=== PATIENT | female | born 1975 | race African-American/Black ===

== ENCOUNTER 2021-04-13 20:28 | Emergency (ER) | payer OTHER, SELFPAY ==
--- NOTE | ~2021-04-13 | XR_ITS ---
EXAMINATION: XR thoracic spine 2V DATE: 04/14/2021 00:08 INDICATION: Posterior left thoracic spine pain. TECHNIQUE: One AP, lateral and lateral swimmer's views of the thoracic spine were obtained. COMPARISON: None. FINDINGS: Alignment is normal. Vertebral body heights are normal. Mild disc height loss at a few levels in the mid and lower thoracic spine. Visualized lungs are clear. No pulmonary edema, pleural effusion or pne umothorax. Cardiomediastinal silhouette is normal. IMPRESSION: 1. Mild thoracic spondylosis. Reviewed, dictated and finalized at location A.
[2021-04-13 20:31] VITALS: BP 131/72; PULSE 67; RESP 16; TEMP 36.2; O2SAT 100
[2021-04-13 21:41] VITALS: BP 132/62; PULSE 64; RESP 18; TEMP 36.7; O2SAT 99
[2021-04-14] MEDS: KETOROLAC 30 MG/ML VIAL (*BKC) IM (00:12)
--- NOTE | 2021-04-14 00:26 | ECG_ITS ---
Measurements Intervals [place] Rate: 61 P: 33 NM: 160 QRS: 29 QRSD: 108 T: 40 QT: 443 QTc: 449 Interpretive Statements SINUS RHYTHM LOW QRS VOLTAGE IN PRECORDIAL LEADS MINIMAL Q WAVES- INFERIOR LEADS BASELINE ARTIFACT- V4 BORDERLINE ECG Electronically Signed On 04-14-2021 7:48:58 CDT by Mal Blevins D.O.
--- NOTE | 2021-04-14 00:41 | ED.GENADULT ---
HPI - General Adult General Chief complaint: Back Pain/Injury Stated complaint: back pain Time Seen by Provider: 04/13/21 23:34 History of Present Illness HPI narrative: Patient is a 46-year-old female presents the emergency department with chief complaint of back pain. Patient reports that she has been the hospital while her father has been an inpatient. Patient reports has been sleeping in a bedside chair and has slept wrong patient reports she has pain in the paraspinous muscles in the left upper back. Patient reports the pain is worse with movement and improved with rest patient denies any numbness or tingling or focal neurological deficit Review of Systems Review of Systems: A 10 system review of systems was completed on the patient and is negative except for what is stated in the HPI. Nursing and ancillary documentation was reviewed. Exam Narrative: GENERAL: Well-appearing, well-nourished, and in no acute distress. HEAD: Normocephalic, atraumatic. EYES: PERRLA and EOMI. ENT: Nares clear, no rhinorrhea or epistaxis. Mucous membranes moist. NECK: Supple. CHEST: Clear to auscultation. No respiratory distress. HEART: Regular rate and rhythm. No murmur heard. Normal peripheral pulses. ABDOMEN: Soft, nontender, nondistended, normal active bowel sounds. Back: There is tenderness palpation of the paraspinous muscles in the left side EXTREMITIES: Normal range of motion. No edema. SKIN: Warm, dry, no rash. NEURO: No focal deficits. Alert and oriented x3. PSYCH: Normal mood and affect. Course Vital Signs Vital signs: Vital Signs Temperature 36.2 C L 04/13/21 20:31 Pulse Rate 67 04/13/21 20:31 Respiratory Rate 16 04/13/21 20:31 Blood Pressure 131/72 04/13/21 20:31 Pulse Oximetry 100 04/13/21 20:31 Temperature 36.7 C 04/13/21 21:41 Pulse Rate 64 04/13/21 21:41 Respiratory Rate 18 04/13/21 21:41 Blood Pressure 132/62 04/13/21 21:41 Pulse Oximetry 99 04/13/21 21:41 Medical Decision Making Vital Signs Vital Signs: Vital Signs Temperature 36.2 C L 04/13/21 20:31 Pulse Rate 67 04/13/21 20:31 Respiratory Rate 16 04/13/21 20:31 Blood Pressure 131/72 04/13/21 20:31 Pulse Oximetry 100 04/13/21 20:31 Temperature 36.7 C 04/13/21 21:41 Pulse Rate 64 04/13/21 21:41 Respiratory Rate 18 04/13/21 21:41 Blood Pressure 132/62 04/13/21 21:41 Pulse Oximetry 99 04/13/21 21:41 Discharge Plan Discharge Clinical Impression: Acute left-sided thoracic back pain Patient Disposition: Home, Self-Care Condition: Stable Instructions: Antibiotic Form, Back Pain (ED) Prescriptions: New cyclobenzaprine 10 mg tablet 10 mg PO TID PRN (Reason: muscle spasm) Qty: 21 RF: 0 ibuprofen 800 mg tablet 800 mg PO TID PRN (Reason: pain) Qty: 30 RF: 0 Follow-up/Referrals: PHYSICIAN NOT ON STAFF,NONSTAFF [Primary Care Provider] - Time of Disposition: 00:45
== END 2021-04-14 01:15 | disposition home or self-care (01) ==
PROVIDERS: Emergency Provider Emergency Medicine
DX: M54.6 Pain in thoracic spine (principal); R94.31 Abnormal electrocardiogram [ECG] [EKG]
CPT/HCPCS: 72070; 93005; 96372; 99283; J1885

== ENCOUNTER 2021-08-11 15:22 | Emergency (ER) | payer OTHER, SELFPAY ==
[2021-08-11 15:33] VITALS: BP 129/87; PULSE 79; RESP 16; TEMP 37; O2SAT 99
--- NOTE | 2021-08-11 16:00 | ED.FEMALEGU ---
HPI - Female Genitourinary General Chief complaint: Urogenital-Female Stated complaint: STD testing Time Seen by Provider: 08/11/21 16:00 Source: patient, RN notes reviewed and old records reviewed Mode of arrival: ambulatory Limitations: no limitations History of Present Illness HPI Narrative: 46-year-old female presents to the [facility] with complaints of abnormal vaginal discharge. Patient has no concern for an STD, recently changed soaps. States that she has had bacterial vaginitis before. Offered to swab and do an exam, patient declined states she would rather just be treated. Reports itchiness and abnormal odor, irritation. Denies fevers, abdominal pain, back pain. No urinary symptoms. Denies chances of Related Data Home Medications Medication Instructions Recorded Confirmed albuterol sulfate 2 puff INHALATION PRN PRN 08/11/21 08/11/21 fluoxetine 10 mg PO DAILY 08/11/21 08/11/21 trazodone 100 mg PO DAILY 08/11/21 08/11/21 Allergies Allergy/AdvReac Type Severity Reaction Status Date / Time No Known Allergies Allergy Verified 08/11/21 16:23 Review of Systems Review of Systems: All systems reviewed & are unremarkable except as noted in HPI and below Constitutional: Constitutional: Reports no additional constitutional complaints, Denies chills and Denies fatigue Eyes: Eyes: Reports no additional eye complaints ENT: Reports system reviewed and no additional complaints, except as documented Cardiovascular: Cardiovascular: Reports no additional cardiovascular complaints Respiratory: Respiratory: Reports no additional respiratory complaints Gastrointestinal: Gastrointestinal: Reports no additional gastrointestinal complaints Genitourinary: Genitourinary: Reports as per HPI, Denies genital lesions, Denies dysuria, Denies pelvic pain, Denies flank pain, Denies urinary incontinence and Reports vaginal discharge Musculoskeletal: Musculoskeletal: Reports no additional musculoskeletal complaints Integumentary/Breasts: Skin/Breast: Reports system reviewed and no additional complaints, except as docu Neurologic: Reports system reviewed and no additional complaints, except as documented Psychiatric: Psychiatric: Reports no additional psychiatric complaints Allergic/Immunologic: Allergic/Immunologic: Reports no additional allergic/immunologic complaints PMFSH Comments At the time of my signature, I reviewed and agree with the nursing past medical, surgical, social, and family history. There is no relevant family history pertinent to the patient complaint. Exam Const: General: healthy appearing, no acute distress and alert Nutritional Appearance: well nourished Orientation/consciousness: patient oriented x3 Limitations: no limitations HENMT: Head: normal to inspection Eyes: Pupils: Equal, round and reactive pupils present Neck: Neck: normal visual inspection, no lymphadenopathy and no meningeal signs Chest: Chest palpation & inspection: normal inspection of the chest Resp: Effort & Inspection: normal respiratory effort Auscultation: clear to auscultation bilaterally Cardio: Rate: regular rate Rhythm: regular rhythm GI: GI Palp: Yes Soft to palpation and No Tenderness to palpation present (GI) : General: Yes no CVA tenderness Other: Patient declined exam Back/Spine/Pelvis: Back: no CVA tenderness Skin: General skin exam: normal color Rashes: no rashes Wounds: no wounds Neuro: General: patient oriented x3, moves all extremities, no meningeal signs and no focal motor deficits Speech: normal speech Gait exam (Neuro): Normal gait present Extrem: General: normal to inspection Psych: Mental Status: mental status grossly normal Affect: normal affect Attitude: cooperative Thought content: Yes Normal thought content present Judgement: Good judgement present (Psych) Course Course Emergency Course: Discharge instructions reviewed with patient, as well as provided in writing per star
== END 2021-08-11 16:30 | disposition home or self-care (01) ==
PROVIDERS: Emergency Provider Nurse Practitioner
DX: N76.0 Acute vaginitis (principal); J45.909 Unspecified asthma, uncomplicated
CPT/HCPCS: 99213; G0463